=== PATIENT | male | born 1980 | race Hispanic/Latino ===

== ENCOUNTER 2017-12-19 14:25 | Emergency (ER) | payer OTHER ==
[2017-12-19] MEDS ORDERED: Proparacaine 0.5% Opth 15 ML BOT ONE (14:48)
[2017-12-19] MEDS ORDERED: Fluorescein Opthalmic Strip ONE (14:48)
== END 2017-12-19 16:30 | disposition home or self-care (01) ==
LOC: ERS 14:25
DX: S05.02XA Injury of conjunctiva and corneal abrasion without foreign body, left eye, initial encounter (principal); E11.9 Type 2 diabetes mellitus without complications; Z79.84 Long term (current) use of oral hypoglycemic drugs; X58.XXXA Exposure to other specified factors, initial encounter
CPT/HCPCS: 99283